=== PATIENT | male | born 1955 | race Caucasian/White ===

== ENCOUNTER → 2018-04-07 | Outpatient (CLI) | payer BC, OTHER ==
[~2018-04-07] MED LIST: CARDURA4 MG PO; CENTRUM SILVER1 EAC2 PO; FISH OIL 1,001000 M2 PO; NORCO 5-325 TA1 EACH PO; VITAMIN C500 M1 PO
== END ==
LOC: CAT 07:23
PROVIDERS: Surgery
DX: K57.92 Diverticulitis of intestine, part unspecified, without perforation or abscess without bleeding (principal); R10.30 Lower abdominal pain, unspecified

== ENCOUNTER 2018-04-20 05:33 | Day surgery (SDC) | payer BC, OTHER ==
[~2018-04-20] VITALS: Ht 190.5 cm; Wt 95.3 kg
--- NOTE | ~2018-04-20 | EKG ---
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 : 1955 Requested By: Jay Wynn Order Number: [id number] MD: Johnnie Griffin Measurements Intervals [place] Rate: 84 P: 74 CA: 185 QRS: -58 QRSD: 154 T: 27 QT: 399 QTc: 472 Interpretive Statements Sinus rhythm RBBB and LAFB Left ventricular hypertrophy Compared to ECG 07/15/2015 13:00:18 No significant change was found Electronically Signed On 04-20-2018 16:47:23 COOKER SYRUP by Johnnie Griffin [email or web address] <ELECTRONICALLY SIGNED> By: Johnnie Griffin MD, [facility] 04/20/18 1647 [id number] [id number] Johnnie Griffin MD, FAC /EPI
--- NOTE | ~2018-04-20 | O ---
[facility] [place] [address] OPERATIVE REPORT Name: XENIA FERNANDEZ Room #: 150-3 [facility] M.R.#: [id number] Admission: 04/20/18 Attend Phys: Jay Wynn MD Discharge: Date of : 59 Report #: [id number] THIS REPORT FOR: //name// CC: Jay De La Cruz MD DATE OF SERVICE: 04/20/2018 PREOPERATIVE DIAGNOSES: Lower abdominal pain, left inguinal hernia. POSTOPERATIVE DIAGNOSES: Lower abdominal pain, left inguinal hernia with finding of an indirect hernia sac. PROCEDURE PERFORMED: Laparoscopic properitoneal repair of left indirect inguinal hernia with mesh. ANESTHESIA: General. SURGEON: Jay Wynn MD. COMPLICATIONS: None. ESTIMATED BLOOD LOSS: 10 mL. PROCEDURE NOTE: With the patient under general anesthesia, the abdomen was prepped and draped in sterile fashion. Taobr catheter was placed, IV antibiotic was administered. A 0.25% Marcaine was used to anesthetize the skin adjacent to the umbilicus on the left side. The patient had a previous right inguinal hernia and umbilical hernia repair. Incision carried through the subcutaneous tissue, the anterior rectus sheath was identified. This was incised transversely. Muscle was spread along the length of its fiber. The posterior sheath was then identified. The space between the muscle and the posterior sheath was bluntly dissected inferiorly. Origin balloon trocar was placed to the same space. The balloon was inflated creating a seal. CO2 was administered. A 5 mm trocar was placed about 2 inches below the umbilicus at the midline. Dissection was then carried out of the properitoneal space. The left inferior epigastric vessels were identified. There was initially thought was a fatty nodule, but then realized it was a lymph node adjacent to this inferior epigastric artery and when I dissected this free from the properitoneal tissue, there was some bleeding along the edges of it. It was hanging in the way, so I went ahead and freed this lymph node and I was able to retrieve it through the 5 mm trocar and will be sending as a specimen. The properitoneal space was opened up. I can see the old mesh attached to the pubic bone. A second 5 mm trocar was placed in the midline slightly to the right. This was placed under visualization. No harm to the underlying tissue. This was placed [address] [address] OPERATIVE REPORT Name: XENIA FERNANDEZ Room #: 150-[address] [place] [address] M.R.#: [id number] Admission: 04/20/18 Attend Phys: Jay Wynn MD Discharge: Date of : 59 Report #: [id number] into the properitoneal space. Rest of properitoneal space was opened up. Lateral to the inferior epigastric vessel, the indirect hernia sac was found. The hernia sac was somewhat tethered. The hernia sac was then followed over the cord structure and the hernia sac was then reduced out of the internal ring. This was indirect inguinal hernia. The abdominal wall medial was intact. There was a little bit of oozing when I dissected the medial fatty tissue. Cautery was used to obtain hemostasis. The hernia sac was completely freed off the cord. An opening about 2 cm was actually made in the peritoneum since this was quite thin. The peritoneum was able to be gathered together and closed with 5 mm clips. There was a moderate sized cord lipoma that was also found and this was reduced. Properitoneal space was opened up well. A large 3DMax lightweight mesh was placed through the Origin balloon trocar. This was then opened in the properitoneal space. This was then positioned to cover the internal ring well. Also, it was brought medially slight overlap with the other mesh. The mesh was tacked to the abdominal wall lateral to the inferior epigastric vessel. SorbaFix was used. No tacks were placed below the iliopubic tract. Inferiorly, the mesh was tacked to the tissue just above the pubic bone and the Andrés ligament. Superiorly, the mesh was tacked to the rectus muscle. The mesh seated well. CO2 was evacuated. Trocar was removed under visualization. There was pneumoperitoneum. At the umbilical site, the posterior fascia was grasped and the posterior fascia was opened. Peritoneum was opened. CO2 was evacuated from the abdominal cavity. A cettty-ez-cmtab 0 Vicryl was placed in the posterior fascia. The anterior fascia was closed with tpovuy-zl-tzoin 0 Vicryl and then interrupted 0 Vicryl suture. Skin was cleaned, irrigated, and then skin was closed with 5-0 PDS. Steri-Strip, Band-Aids used for dressing. The patient tolerated procedure well. By: [id number] [id number] Jay Wynn MD /prateek
--- NOTE | ~2018-04-20 | PATH ---
[facility] [place] [address] PATHOLOGY RPT PROCEDURE Name: XENIA FERNANDEZ Room #: DEP [facility] M.R.#: [id number] Admission: 04/20/18 Date of : 59 Discharge: 04/20/18 Report #: [id number] Path Case #: [id number] [facility] Accession Number: [id number] . 01 Material submitted: . LEFT INGUINAL LYMPH NODE . 01 Clinical history: . Left inguinal hernia . 02 Diagnosis: Left inguinal lymph node: - Lobulated fibroadipose tissue with few lymphoid aggregates. - There is no evidence of atypia or malignancy. . ([facility]:mmsavanna; 04/24/18) [facility]/04/24/2018 . 02 Comment: This is most likely a lymph node with fat replacement. . ([facility]:mml; 04/24/18) . 02 Electronically signed: . Keith Redd MD, Pathologist NPI- [id number] . 01 Gross description: . The specimen is received in formalin, labeled "Xenia Fernandez, left inguinal lymph node". Received is a segment of pale [place] to [place] lobulated tissue measuring 1.6 x 1.1 x 0.5 cm in greatest dimensions. Sectioning reveals a single possible lymph node measuring 1.1 cm in maximum dimensions. The specimen is bisected and entirely submitted in cassette A1. ([facility]; 04/21/2018) QAC/QAC . 02 Pathologist provided ICD-10: K40.90 . 02 CPT . 495161 Specimen Comment: A courtesy copy of this report has been sent to Specimen Comment: [phone], . Specimen Comment: Report sent to / DR ZAMORA Performed at: [address] [address] PATHOLOGY RPT PROCEDURE Name: XENIA FERNANDEZ [facility]: [id number] Admission: 04/20/18 Date of : 59 Discharge: 04/20/18 Report #: [id number] Path Case #: [id number] [address] [id number] MD Oz Carson MD Phone: [phone] Performed at: [address] [id number] MD Olivia Chavarria MD Phone: [phone]
[~2018-04-20 05:33] MED LIST changes: +CARDURA1 MG PO
[2018-04-20 12:00] VITALS: BP 123/80
[2018-04-20 12:23] LABS: HEMATOCRIT 47.9 % (42.0-52.0); HEMOGLOBIN 16.2 gm/dL (14.0-18.0)
[2018-04-20] MEDS ORDERED: NORCO 5-325 TA1 EACH PO (14:29)
[2018-04-20] MEDS ORDERED: FLOMAX0.4 MG PO (14:30)
[2018-04-20 14:53] VITALS: BP 123/80
== END 2018-04-20 15:30 | disposition home or self-care (01) ==
LOC: OR 05:33 → TBA 05:34 → OR 09:01
PROVIDERS: Surgery
DX: K40.90 Unilateral inguinal hernia, without obstruction or gangrene, not specified as recurrent (principal); D17.6 Benign lipomatous neoplasm of spermatic cord; Z98.890 Other specified postprocedural states; Z79.899 Other long term (current) drug therapy; Z90.89 Acquired absence of other organs
CPT/HCPCS: 50010; 50101; 50411; 50455; 50507; 50555; 50848; 53065; 53307; 55245; 56525; 56526; 62110; 62900; 70005